=== PATIENT | female | born 1965 | race Caucasian/White ===

== ENCOUNTER 2016-11-24 22:55 | Emergency (ER) | payer OTHER ==
--- NOTE | ~2016-11-24 | ER ---
PATIENT'S NAME: YVONNE CARR [facility] AGE: 51 Y [address] ROOM: [place] [address] LOCATION: [facility] ADMIT DATE: 11/24/2016 ER/Outpatient Report DISCHARGE DATE: 11/25/2016 FAMILY PHYSICIAN: Carlos Barbosa MD ATTENDING PHYSICIAN: Cuauhtemoc Parra HISTORY OF PRESENT ILLNESS: This patient is a 51-year-old female, who comes in with right lower quadrant abdominal pain. The patient was seen by Sherry Petersen APRN. See Sherry Petersen's dictation in regard to chief complaint, history of present illness, past medical history, physical exam, laboratory study results. Sherry did order a CT scan of the abdomen and pelvis and asked me to follow up with the results after shift change. I took control of the patient at shift change. LABORATORY DATA AND X-RAYS: CT scan of the pelvis showed no evidence of free air or free fluid. Appendix was normal. She did have diverticulosis, but no evidence of diverticulitis or inflammatory changes. Everything was pretty much normal other than cystic structures in the right adnexa. I did go ahead and do an ultrasound of the pelvis, that showed 2 cysts on the right ovary, 1 cyst on the left ovary. Ovary was not torsed. There was no free fluid. No free air. No other abnormalities. Ultrasound and CT scans were read by radiologist, see dictated transcribed reports. IMPRESSION: Right lower quadrant abdominal pain, adnexal pain, etiology uncertain, most likely secondary to right ovarian cyst. The patient does have pyuria, bacteruria, and urine culture is pending. Doubt that she has urinary tract infection. We will follow the culture report. PLAN: The patient was given extensive pain medications here in the emergency department including fentanyl and Dilaudid. She was given Zofran for nausea. Did give the patient also some IV fluids. Discharged home. Observation. Activity as tolerated. Tell 10/325 one every 4 to 6 hours as needed for pain. Ativan 1 mg 3 times a day, #15. See dye colorist formulator either tomorrow or next week. See personal physician as needed. Discussion ensued with the patient concerning my findings and recommendations, she understands. CUAUHTEMOC PARRA MD SDS/modl PATIENT'S NAME: YVONNE CARR [facility] AGE: 51 Y [address] ROOM: [place] [address] LOCATION: [facility] ADMIT DATE: 11/24/2016 ER/Outpatient Report DISCHARGE DATE: 11/25/2016 FAMILY PHYSICIAN: Carlos Barbosa MD ATTENDING PHYSICIAN: Cuauhtemoc Parra /[id number] d: 11/25/16 0359 t: 11/25/16 1809, OUTPATIENT REPORT
--- NOTE | ~2016-11-24 | ER ---
PATIENT'S NAME: YVONNE CARR [facility] AGE: 51 Y [address] ROOM: [place] [address] LOCATION: ED ADMIT DATE: 11/24/2016 ER/Outpatient Report DISCHARGE DATE: 11/25/2016 FAMILY PHYSICIAN: Carlos Barbosa MD ATTENDING PHYSICIAN: Cuauhtemoc Stern Time of Arrival: 2300 hours. Time of Evaluation: 2310 hours. CHIEF COMPLAINT: Right abdominal pain. HISTORY OF PRESENT ILLNESS: The patient states approximately 1 hour prior to arrival, she had sudden onset of right lower quadrant abdominal pain. She last ate or drink anything at 8:30 tonight. She has been nauseated and vomited x2. Did have 2 loose stools this morning. Has not had any pain or discomfort with urination. Has not felt feverish. She states that she did think she was getting cold-like symptoms earlier today. She feels nasal congestion. She states that the pain is a sharp stabbing type pain. She states it is similar to pain that she had in the past when she had diverticulitis. ALLERGIES: ON THE CHART AND REVIEWED BY ME. MEDICATIONS: On the chart and reviewed by me. PAST MEDICAL HISTORY: 1. Arrhythmias. 2. GERD. 3. Diverticulitis. 4. Arthritis. PAST SURGICAL HISTORY: 1. Cholecystectomy. 2. Tonsillectomy. 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 SOCIAL HISTORY: She presents to the ER tonight accompanied by her . Denies use of tobacco, drugs, or alcohol. PATIENT'S NAME: YVONNE CARR [facility] AGE: 51 Y [address] ROOM: [place] [address] LOCATION: ED ADMIT DATE: 11/24/2016 ER/Outpatient Report DISCHARGE DATE: 11/25/2016 FAMILY PHYSICIAN: Carlos Barbosa MD ATTENDING PHYSICIAN: Cuauhtemoc Stern REVIEW OF SYSTEMS: All negative other than those mentioned in the HPI. PHYSICAL EXAMINATION: VITAL SIGNS: She weighed 178.9 kg. Blood pressure is 165/74, pulse is 63, respirations 16, temperature of 98.6, and O2 saturation was 95% on room air. GENERAL: She is awake, alert, and oriented x4. SKIN: [place], warm, and dry. RESPIRATIONS: Even and nonlabored. LUNGS: Lung sounds are clear throughout. HEART: Regular rate and rhythm. ABDOMEN: Round, soft, and nondistended. Bowel sounds are present. She is tender in the right lower quadrant. No rebound tenderness. EMERGENCY DEPARTMENT COURSE: Saline lock was initiated. Lab work was drawn. The patient was given Zofran 4 mg IV and fentanyl 50 mcg IV. Fluids of normal saline were started at a wide-open rate. CBC shows a white count of 13.1. Chem panel; BUN is 25 with a creatinine of 1. GFR was 58. Amylase is 32 with a lipase of 82. CT scan was ordered. Report was given to Dr. Stern at the change of the shift prior to CT scan results being returned. RADHA BROTHERS APRN FOR [facility]/yael /[id number] d: 11/25/16 0345 t: 12/01/16 1822, OUTPATIENT REPORT
[2016-11-24 23:39] LABS: BASOPHIL % 0.3 %; EOSINOPHIL # 0.2 K/uL (0.0-0.5); EOSINOPHIL % 1.8 %; HEMOGLOBIN 14.5 g/dL (10.0-15.0); IMMATURE GRANULOCYTE % 0.3 %; LYMPHOCYTE # 3.1 K/uL (0.8-4.0); LYMPHOCYTE % 23.3 %; MCH 29.5 pg (27.0-34.0); MCV 89.6 fl (83.0-98.0); MONOCYTE # 1.1 K/uL (0.0-1.0); MONOCYTE % 8.1 %; MPV 10.7 fl (9.4-12.4); NEUTROPHIL # (ANC) 8.7 K/uL (1.8-7.8); NEUTROPHIL % 66.2 %; NRBC % 0 /100WBC (0-0.00); PLATELET COUNT 248 K/uL (150-450); RBC 4.91 M/uL (3.50-5.50); RDW-CV 12.3 % (11.9-14.6); WBC 13.1 K/uL (4.0-11.0)
[2016-11-24 23:54] LABS: ALBUMIN 3.4 gm/dL (3.5-5.0); ANION GAP 13.1 (10.0-19.0); CALCIUM 9.1 mg/dL (8.5-10.5); POTASSIUM 4.1 mMol/L (3.7-5.1); TOTAL BILIRUBIN 0.4 mg/dL (0.0-1.5); TOTAL PROTEIN 7.5 g/dL (6.0-8.4)
[2016-11-25 00:41] LABS: BILIRUBIN URINE NEGATIVE (NEGATIVE); BLOOD URINE 50 /UL (NEGATIVE); COLOR URINE YELLOW (YELLOW); GLUCOSE URINE NEGATIVE (NEGATIVE); KETONE URINE NEGATIVE (NEGATIVE); LEUKOCYTES URINE 500 /UL (NEGATIVE); NITRITE URINE NEGATIVE (NEGATIVE); PROTEIN URINE 30 mg/dL (NEGATIVE); SPEC GRAVITY URINE 1.015 (1.003-1.035); TURBIDITY URINE 1+ (CLEAR); UROBILINOGEN URINE NORMAL (NORMAL)
[2016-11-25 00:47] LABS: WBC URINE 20-50 #/HPF (NEGATIVE)
[2016-11-25 00:48] LABS: BACTERIA URINE MANY (NEGATIVE); MUCUS URINE 1+ (NEGATIVE)
[2016-11-25 00:49] LABS: RENAL EPITH URINE 0-2 #/HPF (NEGATIVE)
[2016-11-25] MEDS ORDERED: BYSTOLIC10 MG PO (08:51)
[2016-11-25] MEDS ORDERED: DEXILANT60 MG PO (08:52)
[2016-11-25] MEDS ORDERED: PRINIVIL (ZESTR20 MG PO (08:52)
[2016-11-25] MEDS ORDERED: CLARITIN10 MG PO (08:52)
[2016-11-25] MEDS ORDERED: PHILLIPS' COLO1 EACH PO (08:53)
== END 2016-11-25 02:31 | disposition disaster alternative care site (69) ==
LOC: GMED 22:55
PROVIDERS: Emergency Medicine
DX: R10.31 Right lower quadrant pain (principal); R10.2 Pelvic and perineal pain; R82.71 Bacteriuria; I49.9 Cardiac arrhythmia, unspecified; K21.9 Gastro-esophageal reflux disease without esophagitis; M19.90 Unspecified osteoarthritis, unspecified site; Z90.49 Acquired absence of other specified parts of digestive tract; Z90.89 Acquired absence of other organs; Z87.19 Personal history of other diseases of the digestive system; Z88.0 Allergy status to penicillin; Z88.1 Allergy status to other antibiotic agents; Z88.5 Allergy status to narcotic agent; Z88.8 Allergy status to other drugs, medicaments and biological substances; Z79.899 Other long term (current) drug therapy
CPT/HCPCS: J1170; J2405; J3010; J7030; Q9967

== ENCOUNTER 2016-11-25 06:20 | Inpatient (IN) | payer OTHER ==
[~2016-11-25] VITALS: Ht 177.8 cm; Wt 180.1 kg
--- NOTE | ~2016-11-25 | CON ---
PATIENT'S NAME: YVONNE CARR [facility] AGE: 51 Y [address] ROOM: [place] [address] [place] [facility] [place]MIT DATE: 11/25/2016 Consultation DISCHARGE DATE: 11/27/2016 FAMILY PHYSICIAN: Carlos Barbosa MD ATTENDING PHYSICIAN: Jerald Phillips DISCHARGE DIAGNOSES: 1. Ovarian torsion. 2. Morbid obesity. PROCEDURES DURING ADMISSION: Exploratory laparotomy and bilateral salpingo-oophorectomy. REASON FOR ADMISSION: Ovarian torsion. HOSPITAL COURSE: The patient is a 51-year-old female who presented to the ER on 11/24 complaining of abdominal pain. She was found to have an ovarian cyst, but bilateral blood flow to the ovaries was noted. She was sent home. She presented again a few hours later on 11/25 complaining of worsening abdominal pain that came and went as well as severe nausea and vomiting. Suspicion for ovarian torsion was had. Therefore, exploratory laparotomy was recommended. She was taken to the OR where she underwent an exploratory laparotomy. Her right ovary was noted to be torsed and to have a 7 cm cyst. Her left ovary also was noted to have a cyst on it, but was not torsed. Both were removed. She also had her fallopian tubes removed. Postoperatively, she was admitted to the floor. A Prevena was then placed on her incision. She was ambulating, urinating, tolerating p.o., and desired to be discharged home on postoperative day #2. DISCHARGE INSTRUCTIONS: The patient was instructed to remove the Prevena one week after surgery. She was instructed on no lifting greater than 15 pounds for 4 weeks and to call if fever greater than 100.4, pain not controlled with pain medications, or if any area of her incision becomes red or looks infected. FOLLOWUP: The patient will follow up in [address] Phillips. MD IRENE SHAIKH/yael PATIENT'S NAME: YVONNE CARR [facility] AGE: 51 Y [address] ROOM: [place] [id number] [place]: [facility] [place] ADMIT DATE: 11/25/2016 Consultation DISCHARGE DATE: 11/27/2016 FAMILY PHYSICIAN: Carlos Barbosa MD ATTENDING PHYSICIAN: Jerald Phillips /[id number] d: 12/19/16 1427 t: 12/26/16 0819, CONSULTATION REPORT
--- NOTE | ~2016-11-25 | ER ---
PATIENT'S NAME: YVONNE CARR [facility] AGE: 51 Y [address] ROOM: [place] [address] LOCATION: [facility] – [place] ADMIT DATE: 11/25/2016 ER/Outpatient Report DISCHARGE DATE: FAMILY PHYSICIAN: Carlos Barbosa MD ATTENDING PHYSICIAN: JERALD PHILLIPS TIME OF ARRIVAL: 0620 hours. TIME OF EVALUATION: 0630 hours. CHIEF COMPLAINT: Abdominal pain. HISTORY OF PRESENT ILLNESS: The patient is a 51-year-old female who presents to the emergency department today with a chief complaint of abdominal pain. She reports this started last night. She was seen and evaluated here in the emergency department. She has not followed with her CHEMICAL ETCH OPERATOR in 1 day. Sent home with some pain medicine. The patient had undergone CT imaging as well as ultrasound imaging which did show cyst, but otherwise was unremarkable. The patient did return because of worsening pain with increasing severity as well as increased frequency of sharp, stabbing-type pain. It is in the right lower quadrant. It is currently 10/10 in severity. She does report it comes and goes, intermittent sharp pain in the right lower quadrant. It is worse with heat. Reports medications have not been helping. She does report some nausea and vomiting x8 in the past 24 hours. Denies any fevers or chills. Did have 2 rounds of diarrhea. She denies any history of similar problems. It does radiate back into her flank. She denies any dysuria. She did have some increased frequency until the end of the week and then did have decreased frequency. It is a sharp-type pain. PAST MEDICAL HISTORY: Arrhythmia, gastroesophageal reflux disease, diverticulosis, and arthritis. PAST SURGICAL HISTORY: Cholecystectomy and tonsillectomy. SOCIAL HISTORY: The patient denies any tobacco, alcohol, or illicit drug use. ALLERGIES: CODEINE, PENICILLIN, AZITHROMYCIN, OMNICEF, AND LAMICTAL. PATIENT'S NAME: YVONNE CARR [facility] AGE: 51 Y [address] ROOM: [place] [address] LOCATION: [facility] – [place] ADMIT DATE: 11/25/2016 ER/Outpatient Report DISCHARGE DATE: FAMILY PHYSICIAN: Carlos Barbosa MD ATTENDING PHYSICIAN: JERALD PHILLIPS MEDICATIONS: Please see list. REVIEW OF SYSTEMS: All systems are reviewed by myself and are negative with the exception of those discussed in the HPI and Past Medical History. PHYSICAL EXAMINATION: VITAL SIGNS: Weight 178.9 kg, blood pressure 179/81, pulse 58, respiratory rate 24, temperature 97.8, and oxygen saturation 96% on room air. GENERAL: The patient is a 51-year-old female who appears stated age, in acute discomfort secondary to pain in her abdomen. She is obese. HEENT: Normocephalic, atraumatic. Mucous membranes are moist. Nares are patent bilaterally. NECK: Supple. There is no nuchal rigidity. CARDIOVASCULAR: Bradycardic. No murmurs, rubs, or gallops. LUNGS: Clear to auscultation bilaterally. No wheezes, rales, or rhonchi. ABDOMEN: Soft. Mild right lower quadrant tenderness to palpation. There is no rebound, rigidity, or guarding. Positive bowel sounds. MUSCULOSKELETAL: The patient moves all 4 extremities. SKIN: Warm and dry. LABORATORY AND X-RAY DATA: Labs and x-rays are obtained. Lactate is elevated at 2.6. CBC is unremarkable except for white blood cell count of 13.6. ANC is 11.9. CMP unremarkable except for glucose 156 and BUN 27. LFTs are normal. Procalcitonin is less than 0.05. Laboratory analysis from previous visit was also reviewed by myself. CBC was unremarkable except for BUN 25. LFTs normal. Amylase and lipase are normal. CBC: White blood cell count 13.1. Otherwise, normal. Urinalysis showed 500 leukocyte esterase, 30 protein, 50 blood, 20 to 50 wbc's, 5 to 10 epithelials, and many bacteria. CT scan of the abdomen and pelvis was obtained. It does show a cystic right adnexal lesion which has increased in size, 9.3 x 7.9. Stable, multicystic left ovary. Normal appendix. Ultrasound, both transvaginal and transabdominal are utilized. I have discussed the results with the flight technician who did perform that ultrasound study. The left ovary did have a cystic structure that is 2.2 x 3.0 x 1.9 cm. The right ovary has two cysts, 8.6 x 8.2 x 8.7 and then 2.3 x 2.6 x 1.8. Blood flow to the ovaries was identified. There was no free fluid identified in the pelvis. There was some air. IMPRESSION: 1. Acute right lower quadrant abdominal pain with multiple ovarian cysts up to 8.7 cm, concern for possible ovarian torsion. 2. Bilateral ovarian cysts. 3. Leukocytosis. PATIENT'S NAME: YVONNE CARR [facility] AGE: 51 Y [address] ROOM: [place] [address] LOCATION: [facility] – [place] ADMIT DATE: 11/25/2016 ER/Outpatient Report DISCHARGE DATE: FAMILY PHYSICIAN: Carlos Barbosa MD ATTENDING PHYSICIAN: JERALD PHILLIPS 4. Lactic acidosis. 5. Nausea and vomiting. 6. Acute urinary tract infection, suspect bladder. 7. Initial visit. EMERGENCY DEPARTMENT COURSE: The patient was brought back to the examination room. Seen and evaluated by myself. IV was established. Laboratory analysis was obtained as described above. Imaging was reviewed as described above. I have discussed the results of the testing with the patient. I have contacted Dr. Jerald Phillips, who is on-call for CHEMICAL ETCH OPERATOR, and discussed the case with her. She has seen and evaluated the patient down here in the emergency department. There is concern for potential right ovarian torsion. Dr. Phillips will proceed to the operating room for evaluation and treatment. The patient was given 1 mg of Dilaudid IV, 1 L of normal saline, as well as 4 mg of Zofran IV. I did initiate Levaquin 750 mg IV for urinary tract infection. DISPOSITION: The patient is admitted under the care of Dr. Phillips and transferred to the operating room in stable condition. DO GIRISH DUNCAN/yael /[id number] d: 11/25/16 1446 t: 11/28/16 0930, OUTPATIENT REPORT
--- NOTE | ~2016-11-25 | OR ---
PATIENT'S NAME: YVONNE CARR [facility] AGE: 51 Y [address] ROOM: [place] [address] [place] [facility] [place]MIT DATE: 11/25/2016 OR/Procedure Report DISCHARGE DATE: FAMILY PHYSICIAN: Carlos Barbosa MD ATTENDING PHYSICIAN: JEARLD PHILLIPS SURGEON: Jerald Phillips MD PRINT COLOR OPERATOR: Kristen Chaudhary MD DATE OF PROCEDURE: 11/25/2016 PREOPERATIVE DIAGNOSES: 1. Concern for torsed right ovary. 2. An 8 cm right ovarian cyst. 3. Left ovarian cyst. 4. Thickened endometrial stripe. 5. Obesity. 6. Urinary tract infection. POSTOPERATIVE DIAGNOSES: 1. Concern for torsed right ovary. 2. An 8 cm right ovarian cyst. 3. Left ovarian cyst. 4. Thickened endometrial stripe. 5. Obesity. PROCEDURES PERFORMED: Cervical dilation and endometrial curettage, and exploratory laparotomy with bilateral salpingo-oophorectomy. FINDINGS: A 9 cm right ovarian cyst as well as a smaller 3 cm either ovary or tubular cyst adjacent to the first cyst. The right ovary was torsed about 4 times. Normal uterus. Left ovary with 3 cm cyst. Uterus sounded to 9 cm. Small amount of endometrial curettings obtained. ESTIMATED BLOOD LOSS: 50 mL. ANESTHESIA: General. COMPLICATIONS: None. INDICATIONS: The patient is a 51-year-old female, who presented to the ER last night on 11/24 complaining of right lower quadrant pain. She had a CT scan showing a right ovarian cyst and ultrasound showed blood flow to both ovaries. She was given pain medicine and sent home with instructions to follow up with her physical geographer. She then presented to the ER again complaining of worsening pain that came in waves as well as nausea and vomiting. The patient was found to have an acute abdomen and surgical PATIENT'S NAME: YVONNE CARR [facility] AGE: 51 Y [address] ROOM: [place] [address] [place] [facility] [place] DATE: 11/25/2016 OR/Procedure Report DISCHARGE DATE: FAMILY PHYSICIAN: Carlos Barbosa MD ATTENDING PHYSICIAN: JERALD PHILLIPS exploration was recommended. DESCRIPTION OF PROCEDURE: The patient was taken to the operating room where she was placed under general anesthesia without complication. She was placed in dorsal lithotomy position. She was prepped and draped in the usual sterile fashion. A Lopez catheter was placed. A time-out was performed. A weighted speculum was placed in the patient's vagina and a right angle was placed anteriorly to visualize the cervix. The anterior lip of the cervix was grasped with a single-tooth tenaculum. The uterus sounded to 9 cm. It was then gradually dilated to accommodate the curette. Sharp curettage was then performed with a small amount of tissue obtained. The tenaculum was removed and hemostasis was noted. All instruments were retrieved from the patient's vagina. The drapes were removed. She was then placed in dorsal supine position. A Retentus retractor was placed on her abdomen given her morbid obesity and large pannus. She was then prepped and draped in the usual sterile fashion. A scalpel was used to make a Pfannenstiel incision. This was carried down to the underlying fascia with cautery. The fascia was scored and then the fascial incisions were carried out bilaterally with Womack scissors. The rectus muscles were dissected off the fascia superiorly and inferiorly. The rectus muscles were divided in the midline. The peritoneum was identified and entered sharply. This was extended bluntly and sharply. The right ovary was brought to the incision and was noted to be torsed 3 to 4 times and we have an 8 cm cyst with a smaller 3 cm cyst adjacent to that. It either be the ovary or a tubular cyst. The IP ligament was clamped with a hysterectomy clamp. A back clamp was placed towards the ovary and the ovary was excised and sent for pathology. A Ramandeep stitch was placed around the IP ligament followed by a free tie stitch. These were both 0 Vicryl. Hemostasis was noted. The left ovary was then identified, it was noted to have adhesions of epiploica to it which were bluntly dissected off. The IP ligament was then identified and singly clamped. The ovary and tube were excised and sent to Pathology. A Ramandeep stitch of 0 Vicryl was placed around this followed by a free tie stitch. Hemostasis was noted. The uterus was palpated and found to be normal. The omentum was also palpated and no masses were noted. No ascites was noted upon entering the abdomen, and no studding of the peritoneum was noted. There was a large blood vessel that was bleeding on the rectus muscles and 2 stitches of 0 Vicryl were placed around this for hemostasis. The fascia was then closed in a running fashion using 0 PDS suture. The subcutaneous tissue was irrigated. No areas of bleeding were noted. This area was closed with 2-0 Vicryl in a running fashion. The skin was then closed with 4-0 Vicryl in subcuticular fashion. A Prevena wound VAC was then placed over the patient's incision. Instrument, sponge, and needle counts were correct prior to abdominal closure at the conclusion of the case. DISPOSITION: The patient is stable to PACU. PATIENT'S NAME: YVONNE CARR [facility] AGE: 51 Y [address] ROOM: [place] [address] [place] [facility] [place] DATE: 11/25/2016 OR/Procedure Report DISCHARGE DATE: FAMILY PHYSICIAN: Carlos Barbosa MD ATTENDING PHYSICIAN: JERALD PHILLIPS MD IRENE SHAIKH/yael /[id number] d: 11/25/16 1537 t: 12/12/16 0927, OPERATIVE SUMMARY
--- NOTE | ~2016-11-25 | HP ---
PATIENT'S NAME: YVONNE CARR [facility] AGE: 51 Y [address] ROOM: [place] [address] [place] [facility] [place] DATE: 11/25/2016 History & Physical DISCHARGE DATE: FAMILY PHYSICIAN: Carlos Barbosa MD ATTENDING PHYSICIAN: JOAN LUCIA DATE OF SERVICE: CHIEF COMPLAINT: Right lower quadrant pain. HISTORY OF PRESENT ILLNESS: The patient is a 51-year-old, G0 who presented to the ER initially last night reporting right lower quadrant pain. At that time, she had ultrasound performed that showed bilateral ovarian cysts with the largest being on the right of 8.6 x 8.2 x 8.7 cm. Bilateral blood flow to both ovaries was noted. She was given pain medication and was felt stable for discharge home. So she was discharged to home. She then presented to the ER again this morning reporting waves of pain as well as nausea and vomiting. The patient reports this pain all started last night around 9:30 p.m., and prior to that she has not had any lower abdominal pain. The patient is in obvious pain and distress, when I entered the room. PAST MEDICAL HISTORY: 1. PVCs. 2. Diverticulitis. 3. GERD. 4. Morbid obesity. PAST SURGICAL HISTORY: 1. Open cholecystectomy. 2. Tonsils. LOGISTICS INTERN HISTORY: She is a G0. She denies a history of any abnormal Pap smears. She reports that she has not had a period for about one and half years. She denies hot flashes. MEDICATIONS: Bystolic. ALLERGIES: REVIEWED. FAMILY HISTORY: PATIENT'S NAME: YVONNE CARR [facility] AGE: 51 Y [address] ROOM: [address] [address] [place] [facility] [place] DATE: 11/25/2016 History & Physical DISCHARGE DATE: FAMILY PHYSICIAN: Carlos Barbosa MD ATTENDING PHYSICIAN: JOAN LUCIA She reports a history of breast cancer in a paternal aunt and cervical cancer in her sister, and no other family history of cancer. REVIEW OF SYSTEMS: Negative except as noted in the HPI. SOCIAL HISTORY: She denies tobacco, alcohol, or drug use. She is present with her significant other today. PHYSICAL EXAMINATION: VITAL SIGNS: Heart rate 58, respirations 24, blood pressure 179/81, and 96% on room air. GENERAL: She is alert and oriented. She is in acute distress with pain coming in waves in her lower quadrant. The patient is also nauseated and has to pause multiple times during my interview and exam due to pain. HEART: Regular rate and rhythm. LUNGS: Clear to auscultation bilaterally. ABDOMEN: Obese, it is soft. It is acutely tender to palpation in the right lower quadrant. No rebound. She does have voluntary guarding. LABORATORY DATA: Her white blood cell count is 13.6, hemoglobin 14.4, and platelets 272,000. Her creatinine is 0.9. Liver function tests are normal. Lactate is 2.6. Urinalysis shows 500 of leukocytes, negative nitrites, many bacteria, 5-10 epithelial cells, 10-50 white blood cells, and 5-10 red blood cells. IMAGING STUDIES: The patient had an ultrasound as noted above that showed a uterus that measured 4.7 x 4.3 x 3.5 cm. Her endometrial stripe was slightly thickened at 8 mm. Her right ovary measured 5.0 x 3.4 x 4.4 cm and then a large cyst at the right ovary measured 8.6 x 8.2 x 8.7 cm. Her left ovary measured about 3.1 x 4.8 x 3.8 cm with a single cyst inside the left ovary measuring 2.2 x 3.0 x 9.1 cm. She also had a second right ovarian cyst that measured 2.3 x 2.6 x 1.8 cm. ASSESSMENT: The patient is a 51-year-old female with a right ovarian cyst that is likely torsing causing an acute abdomen. PLAN: I discussed with the patient that in anybody with a large ovarian cyst, there always a concern for ovarian cancer and I would prefer to send her to [facility]. However, given her acute pain, she does not want to do this and I do not think that she is a good candidate for transfer at this time. I recommend taking PATIENT'S NAME: YVONNE CARR [facility] AGE: 51 Y [address] ROOM: [place] [address] [place]: [facility] [place] DATE: 11/25/2016 History & Physical DISCHARGE DATE: FAMILY PHYSICIAN: Carlos Barbosa MD ATTENDING PHYSICIAN: JOAN LUCIA her to the OR with surgical exploration via laparotomy and removal of her right ovary and cyst as well as likely her left ovary as well, as well as her fallopian tubes. I discussed with her that I do not think laparoscopy is a good option given the size of the ovarian cyst and the risk for spilling intra- abdominally in the case that it is cancer this would be harmful. I discussed the risks of surgery to include bleeding, infection, damage to surrounding organs and tissues including bowel, bladder, blood vessels, ureters, and nerves. I also discussed needing additional hospitalizations or procedures due to any complications. The patient has been in agreement with plan. We will plan to proceed to the OR as soon as possible. The patient is reporting significant reflux symptoms. We will give her 40 of Protonix prior to going back to the OR. We will get an EKG and type and screen her as well. MD IRENE SHAIKH/yael /[id number] D: [id number] T: [id number] HISTORY & PHYSICAL
--- NOTE | ~2016-11-25 | DS ---
PATIENT'S NAME: YVONNE CARR [facility] AGE: 51 Y [address] ROOM: [place] [address] LOCATION: [facility] [place] ADMIT DATE: 11/25/2016 Discharge Summary DISCHARGE DATE: 11/27/2016 FAMILY PHYSICIAN: Carlos Barbosa MD ATTENDING PHYSICIAN: Jerald Phillips DISCHARGE DIAGNOSES: 1. Ovarian torsion. 2. Right ovarian cyst. 3. Left ovarian cyst. 4. Thickened endometrial stripe. PROCEDURES DURING ADMISSION: Exploratory laparotomy and bilateral salpingo- oophorectomy as well as dilation and curettage. REASON FOR ADMISSION: Ovarian torsion. HOSPITAL COURSE: The patient is a 51-year-old morbidly obese female, who presented to the ER with a suspected right ovarian torsion. She had been seen in the ER the day before and had a known 7 cm right ovarian cyst as well as a left ovarian cyst. Thickened endometrial stripe was also noted when she presented again, but she had an acute abdomen and therefore, surgery was recommended. The patient was taken to the operating room where she underwent exploratory laparotomy, that showed a torsed right ovary that had a 7 cm cyst as well as left ovarian cyst. She had a bilateral salpingo-oophorectomy without complications. She also underwent a dilation and curettage in the OR, given her thickened endometrial stripe on imaging and postmenopausal status. , her postoperative course was uncomplicated. She was ambulating, urinating, tolerating p.o., and desired to be discharged home on postoperative day #2. DISCHARGE INSTRUCTIONS: The patient is instructed no lifting greater than 15 pounds for 4 to 6 weeks. Call if fever greater than 100.4, pain not controlled with pain medication or if any area of her incision becomes red or looks infected. FOLLOW UP: The patient was instructed to follow up with Dr. Phillips in 2 weeks. MD IRENE SHAIKH/yael PATIENT'S NAME: YVONNE CARR [facility] AGE: 51 Y [address] ROOM: [place] [address] LOCATION: [facility] [place] ADMIT DATE: 11/25/2016 Discharge Summary DISCHARGE DATE: 11/27/2016 FAMILY PHYSICIAN: Carlos Barbosa MD ATTENDING PHYSICIAN: Jerald Phillips /[id number] d: 12/27/16 1435 t: 01/01/17 1129, DISCHARGE SUMMARY
[2016-11-25 07:16] LABS: BASOPHIL % 0.1 %; EOSINOPHIL % 0.1 %; HEMATOCRIT 42.8 % (33.0-46.0); HEMOGLOBIN 14.4 g/dL (10.0-15.0); IMMATURE GRANULOCYTE # 0.1 K/uL (0.0-0.3); IMMATURE GRANULOCYTE % 0.4 %; LYMPHOCYTE % 7.3 %; MCH 29.8 pg (27.0-34.0); MCHC 33.6 gm/dL (32.0-36.5); MCV 88.4 fl (83.0-98.0); MONOCYTE # 0.6 K/uL (0.0-1.0); MONOCYTE % 4.4 %; MPV 10.7 fl (9.4-12.4); NEUTROPHIL # (ANC) 11.9 K/uL (1.8-7.8); NEUTROPHIL % 87.7 %; NRBC % 0 /100WBC (0-0.00); PLATELET COUNT 272 K/uL (150-450); RBC 4.84 M/uL (3.50-5.50); RDW-CV 12.1 % (11.9-14.6); WBC 13.6 K/uL (4.0-11.0)
[2016-11-25 07:34] LABS: ALBUMIN 3.9 gm/dL (3.5-5.0); ALK PHOS 83 IU/L (33-138); ALT 42 IU/L (12-78); ANION GAP 12.4 (10.0-19.0); AST 24 IU/L (10-40); BLOOD UREA NITROGEN 27 mg/dL (6-24); CALCIUM 9.5 mg/dL (8.5-10.5); CHLORIDE 107 mMol/L (96-110); CO2 25 mMol/L (22-32); CREATININE 0.9 mg/dL (0.5-1.1); ESTIMATED GFR (MDRD EQUATION) > 60; POTASSIUM 4.4 mMol/L (3.7-5.1); SODIUM 140 mMol/L (135-145); TOTAL BILIRUBIN 0.5 mg/dL (0.0-1.5); TOTAL PROTEIN 7.5 g/dL (6.0-8.4)
[2016-11-25] MEDS ORDERED: BYSTOLIC10 MG PO (08:51)
[2016-11-25] MEDS ORDERED: DEXILANT60 MG PO (08:52)
[2016-11-25] MEDS ORDERED: PRINIVIL (ZESTR20 MG PO (08:52)
[2016-11-25] MEDS ORDERED: CLARITIN10 MG PO (08:52)
[2016-11-25] MEDS ORDERED: PHILLIPS' COLO1 EACH PO (08:53)
--- NOTE | 2016-11-25 16:05 | NUR ---
Significant Event: Patient is alert and oriented x3. VSS and titrated to 1 liter of O2. Will have one hourly post op VS left- 1915. IV to the R)AC, fluids infusing. Toradol Q6 hours x 3 doses. Two doses will be completed by 1800. Last percocet was at 1113. Denies severe pain and wanting more pain meds at this time. General diet. Did have some nausea when arriving to the floor- zofran given and advised patient to only take in ice chips. No emesis and nausea has subsided. Ordered some soup. Up in chair as tolerated, will try this evening. Wolfe cath in place. Remove wolfe POD#1 on 11/26/16 at 5AM. Prevara wound vac to lower midline abdomen. Cooperative with cares. Family at the bedside.
--- NOTE | 2016-11-26 03:33 | NUR ---
Pt. alert and oriented x3. VSS. 0.5L only for patient's comfort throughout night as concerned that sats would drop too low. R) AC IV with fluids at 125ml. Finished doses of Toradol. Last percocet taken at 0200 - pt. likes taking only 1 tab at a time. General diet - tolerating well. No c/o N/V. Lopez to be taken out early AM as well as planning to get out of bed. Prevara wound vac to lower midline. Cooperative with cares. at bedside.
[2016-11-26 05:21] LABS: MCH 29.7 pg (27.0-34.0); MCHC 32.5 gm/dL (32.0-36.5); MCV 91.5 fl (83.0-98.0); MPV 10.6 fl (9.4-12.4); RBC 4.37 M/uL (3.50-5.50); RDW-CV 12.7 % (11.9-14.6); WBC 9.8 K/uL (4.0-11.0)
--- NOTE | 2016-11-26 17:29 | NUR ---
Significant Event:Is A/O.SL in Rt.anticub.Is amb with walker & one assist.Low abd incision with small wound vac.Voiding ok.No flatus or stools yet.Had Percocet 1 at 1020;1430;& 1720.No N/V. Follow up:
--- NOTE | 2016-11-27 03:59 | NUR ---
Pt. alert and oriented x3. RA. VSS. R) IV - saline locked. Last percocet of 1 tab taken around 0100. Regular diet. 1 assist with walker and gaitbelt. Gave zofran around 2300 with relief. Voiding well. BS absent/hypoactive. Still not passing gas. Stool softener BID. Precara wound jose c to lower midline. Cooperative and pleasant with all cares.
[2016-11-27] MEDS ORDERED: SURFAK240 MG PO (11:32)
[2016-11-27] MEDS ORDERED: PERCOCET 5-3251 EACH PO (11:34)
--- NOTE | 2016-11-27 15:29 | NUR ---
Significant Event:Took over cares at 0930. Pt up ad julio in room. Wound vac intact to abd incision. Pain pill given prior to dc at 1200. Dc to home with , states understanding of all dc instructions and care of wound vac. Pt belongings sent with pt. Follow up:
== END 2016-11-27 12:10 | disposition disaster alternative care site (69) | DRG 742 ==
LOC: GMED 06:20 → GMSU 08:23 → GSDC 08:23 → GNTU 08:50 → GMSU 08:51 → GSDC 08:51 → GNTU 11:19 → GMSU 11:19 → GSDC 11-27 12:10 → GMSU 11-27 12:10
PROVIDERS: Emergency Medicine; ADMIT Obstetrics & Gynecology
DX: N83.201 Unspecified ovarian cyst, right side (principal); Z68.43 Body mass index [BMI] 50.0-59.9, adult; N39.0 Urinary tract infection, site not specified; E66.01 Morbid (severe) obesity due to excess calories; K21.9 Gastro-esophageal reflux disease without esophagitis; I49.3 Ventricular premature depolarization; B96.89 Other specified bacterial agents as the cause of diseases classified elsewhere
CPT/HCPCS: C9113; J1170; J1885; J1956; J2250; J2405; J3010; J7030

== ENCOUNTER → 2016-11-29 | Outpatient (CLI) | payer OTHER ==
[~2016-11-29] MED LIST: ATIVAN 1 MG1 MG PO; BACTRIM DS1 TAB PO; BYSTOLIC10 MG PO; CLARITIN10 MG PO; DEXILANT60 MG PO; FLAGYL500 MG PO; MOBIC7.5 MG PO; NORCO 10-325 T1 EACH PO; NYSTOP60 GM TOP; PERCOCET 5-3251 EACH PO; PHILLIPS' COLO1 EACH PO; PRINIVIL (ZESTR20 MG PO; SSD25 GM TOP; SURFAK240 MG PO; TYLENOL EXTRA500 MG PO; ZOFRAN ODT 4 MG4 MG PO
== END | disposition disaster alternative care site (69) ==
LOC: GRAD 12:40
DX: R50.9 Fever, unspecified (principal); R05 Cough; M41.9 Scoliosis, unspecified

== ENCOUNTER 2016-12-04 07:04 | Inpatient (IN) | payer OTHER ==
[~2016-12-04] VITALS: Ht 177.8 cm; Wt 173.0 kg
--- NOTE | ~2016-12-04 | CON ---
PATIENT'S NAME: YVONNE CARR [facility] AGE: 51 Y [address] ROOM: [place] [address] LOCATION: [facility] [place] ADMIT DATE: 12/04/2016 Consultation DISCHARGE DATE: FAMILY PHYSICIAN: Carlos Barbosa MD ATTENDING PHYSICIAN: Kristen Chaudhary DATE OF CONSULTATION: 12/04/2016 CONSULTATION NOTE CHIEF COMPLAINT/REASON FOR CONSULTATION: Sepsis. HISTORY OF PRESENT ILLNESS: This is a 51-year-old female with a history of hypertension, morbid obesity, and recent abdominal laparotomy for management of ovarian torsion with bilateral salpingo-oophorectomy on 11/25/2016. Seen in consult for workup of persistent fever. The patient reports to me that she had been measuring her temperatures at home ever since she left the hospital last week after her surgery and had been spiking fevers daily for the last few days. The patient also described some subjective fevers. However, she reports that abdominal pain and discomfort overall has gotten better following her surgery. The patient denies any dysuria, frequency, or urinary symptoms. The patient does report some cough that is productive in nature, but denies any shortness of breath. Denies any chest pain, dizziness, or lightheadedness. Denies any nausea, vomiting, diarrhea, or constipation. PAST MEDICAL HISTORY: 1. Morbid obesity. 2. Hypertension. 3. GERD. SOCIAL HISTORY: The patient denies any history of smoking, alcohol, or drug use. FAMILY HISTORY: The patient has a history of coronary artery disease in her mother. REVIEW OF SYSTEMS: All systems have been reviewed and were negative except as described in the HPI. PHYSICAL EXAMINATION: VITAL SIGNS: Blood pressure 115/46, pulse 82, respiratory rate 20, and temperature 99.5. PATIENT'S NAME: YVONNE CARR [facility] AGE: 51 Y [address] ROOM: [place] [address] LOCATION: [facility] [place] ADMIT DATE: 12/04/2016 Consultation DISCHARGE DATE: FAMILY PHYSICIAN: Carlos Barbosa MD ATTENDING PHYSICIAN: Kristen Chaudhary GENERAL: Morbidly obese, but awake, alert, and oriented x3, in no acute distress. HEENT: Moist mucous membranes. No scleral icterus. Conjunctival pallor noted. SKIN: Without rashes or lesions. Healing incisional scars on abdomen visible without obvious draining or erythema. CHEST: Clear to auscultation bilaterally. HEART: S1 and S2. Regular rate and rhythm. ABDOMEN: Soft. Mildly tender to palpation, but otherwise, has good bowel sounds. Incision sites are well healed. NEUROLOGIC: Grossly nonfocal. MUSCULOSKELETAL: No other joint pain, redness, or swelling noted. LABORATORY DATA: WBC 18.5. UA; wbc's 50-100 with likely contaminants with full-field epithelial cells. ASSESSMENT AND PLAN: 1. Sepsis, secondary to abdominal abscess. CT scan showing an 11 x 5 cm large right-sided abdominal abscess plus possible hematomas on the bilateral inferior rectus sheath with gas bubbles perhaps suggesting infection there as well. The recommendation is to attempt to drain the abdominal abscess and in the meantime, continue antibiotics and monitor clinically. Blood cultures are pending and antibiotics may be narrowed once abscess culture results are back. 2. Morbid obesity. The patient would need significant lifestyle modifications to address these issues. 3. Obstructive sleep apnea. She is supposed to be on nightly CPAP, but does not use this. 4. Essential hypertension. The patient should continue her home medications. 5. Deep venous thrombosis prophylaxis. Subcutaneous Lovenox. MD YENNY OVALLE/yael /[id number] d: 12/04/161943 t: 12/19/16 1440, CONSULTATION REPORT
--- NOTE | ~2016-12-04 | ER ---
PATIENT'S NAME: YVONNE CARR [facility] AGE: 51 Y [address] ROOM: [place] [address] [place] [facility] [place]: 12/04/2016 ER/Outpatient Report DISCHARGE DATE: FAMILY PHYSICIAN: Carlos Barbosa MD ATTENDING PHYSICIAN: Kristen Chaudhary CHIEF COMPLAINT: Fever. HISTORY OF PRESENT ILLNESS: The patient is one week status post bilateral salpingo-oophorectomy for multiple ovarian cysts with torsion, confirmed on laparoscopy and on pathologic exam. She states that over the last few days, her fever has been worse. She is having worse cough, but her fevers have been increasing. She was started on Bactrim and Flagyl on Monday but continues to feel worse. She denies any particular discomfort at the surgical site and states that this is "the best I have felt in a long time." There are no other focal issues, and she denies any urinary symptoms. PAST MEDICAL HISTORY: Documented on the record and reviewed by me. SOCIAL HISTORY: Documented on the record and reviewed by me. MEDICATIONS: Documented on the record and reviewed by me. ALLERGIES: DOCUMENTED ON THE RECORD AND REVIEWED BY ME. REVIEW OF SYSTEMS: All systems were reviewed and negative except as noted in the HPI. PHYSICAL EXAMINATION: VITAL SIGNS: Blood pressure 123/56, pulse 91, respiratory rate 18, temperature 100.9, SpO2 is 94% on room air. Pain 3/10. GENERAL: An age-appropriate obese female, sitting upright on the exam table, in no obvious pain or distress, appears miserable. NEUROLOGIC: Awake and alert. GCS 15. No focal deficits. No asymmetry. HEENT: Normocephalic, atraumatic. Eyes are PERRL. Oropharynx is clear. NECK: Supple. Trachea is midline. CHEST: Heart is regular rate and rhythm with no murmurs. LUNGS: Grossly clear to auscultation bilateral. No rhonchi, wheezes, or rales. PATIENT'S NAME: YVONNE CARR [facility] AGE: 51 Y [address] ROOM: [place] [address] [place] [facility] [place]: 12/04/2016 ER/Outpatient Report DISCHARGE DATE: FAMILY PHYSICIAN: Carlos Barbosa MD ATTENDING PHYSICIAN: Kristen Chaudhary ABDOMEN: Soft. No particular areas of tenderness. Surgical site appears intact. No gross abnormalities appreciated on exam. No focal tenderness. BACK: Normal to inspection and palpation. EXTREMITIES: Edematous but no focal areas consistent with cellulitis or DVT. SKIN: Appears to be grossly intact. LABORATORY DATA AND X-RAYS: CT of the abdomen reveals fluid collection in the subcutaneous tissues near the surgical tract in addition to the rectus sheath. This favors bleeding versus infection, favor infection. Labs: White count is 18.6, up from 12.6 on Monday. Hemoglobin and platelets are appropriate. Urinalysis: 500 leukocytes, 150 blood, the sample is poor as a full field of epithelial cells. Procalcitonin is below threshold. CMS without appreciable abnormality of the electrolytes, renal function, or hepatobiliary function. Thyroid is within normal limits. Lactate is 1.5. IMPRESSION: Infection versus bleeding of the surgical site, favor infection with rectus sheath involvement. EMERGENCY DEPARTMENT COURSE: The patient was seen and evaluated as above. The typical postoperative infections were investigated. No objective signs of DVT. Not consistent with PE. The patient did not have a pneumonia on her chest x-ray as reviewed by me. Her urinalysis is significantly contaminated and without urinary symptoms, I think UTI is very unlikely. With the significant change in her labs, despite broad-spectrum antibiotics, I am concerned for abscess. Most likely would be surgical site. At that time, she received a CT of the abdomen. This was diagnostic. I contacted Dr. Chaudhary, on-call Insurance Claim Representative for the patient's surgical group. The patient will be admitted to their service for further evaluation and treatment. The patient's antibiotics were changed to ertapenem for coverage of typical organism expected in this situation. All questions were answered, and the patient was admitted without further issue. MD TOMER ROGERS/yael /[id number] d: 12/04/168 t: 12/06/16 1124, OUTPATIENT REPORT
--- NOTE | ~2016-12-04 | HP ---
PATIENT'S NAME: YVONNE CARR [facility] AGE: 51 Y [address] ROOM: [place] [address] LOCATION: [facility] [place] ADMIT DATE: 12/04/2016 History & Physical DISCHARGE DATE: FAMILY PHYSICIAN: Carlos Barbosa MD ATTENDING PHYSICIAN: Kristen Chaudhary DATE OF SERVICE: 12/04/2016 CHIEF COMPLAINT: Postoperative fevers. HISTORY OF PRESENT ILLNESS: This is a 51-year-old 0 who is status post laparotomy and BSO for ovarian torsion on 11/25/2016. She presented with fevers and feeling poorly to the ER this morning. CT scan showed bilateral rectus sheath hematomas versus abscesses, but otherwise there was no clear origin of her fever. She has had no nausea, vomiting, shortness of breath, or chest pain. She thought she had a slight cough on Monday and was given a Z-Vincent. Chest x-ray at that time was negative. She had no evidence of cellulitis and wound infection when she was seen for followup on Monday, but I did start her on Bactrim and Flagyl as she was having an elevated temperature once a day at that time. She also has had some adhesive reaction to her wound VAC and had some blistering on and around her incision, but this has greatly improved. Her white blood cell count on Monday was 12. Today, it is 18.6. Overall, she has no clear complaint. She has no severe pain. She really just feels worn out. PAST MEDICAL HISTORY: 1. Cardiac arrhythmia, unknown type. 2. GERD. 3. Arthritis. 4. Morbid obesity. PAST SURGICAL HISTORY: 1. Tonsillectomy. 2. Cholecystectomy. 3. Bilateral salpingo-oophorectomy. 4. Left ankle. OBSTETRICAL HISTORY: She is a 0 with normal Paps. MEDICATIONS: 1. Probiotic. 2. Bystolic. 3. Claritin. PATIENT'S NAME: YVONNE CARR [facility] AGE: 51 Y [address] ROOM: [place] [address] LOCATION: [facility] [place] ADMIT DATE: 12/04/2016 History & Physical DISCHARGE DATE: FAMILY PHYSICIAN: Carlos Barbosa MD ATTENDING PHYSICIAN: Kristen Chaudhary 4. Dexilant. 5. Lisinopril. 6. Mobic. 7. Percocet. ALLERGIES: CODEINE, ERYTHROMYCIN, LAMISIL, OMNICEF, AND PENICILLIN. REVIEW OF SYSTEMS: As per HPI. All others are reviewed and negative. PHYSICAL EXAMINATION: VITAL SIGNS: BP 115/46, pulse 82, respirations 20, and temperature 99.5. GENERAL: She is alert and oriented. HEART: Regular rate and rhythm. LUNGS: Clear to auscultation bilaterally. ABDOMEN: Soft, appropriately tender, nondistended. Her incision is clean, dry, and intact with blisters present, but no cellulitis noted. EXTREMITIES: Show lymphedema which she states is her baseline. No clubbing or cyanosis. Calves are nontender. LABORATORY DATA: White blood cell count is 18.6. Urine shows small bacteria and positive leukocytes, but is not a clean catch. ASSESSMENT AND PLAN: Postop day #9 with fever. Differential diagnosis includes bilateral hematomas versus atelectasis versus possible urinary tract infection, although this is less likely, and her catch was not clean. Most likely, it is due to her hematomas. There is no drainage from her wound or evidence of incisional infection. However, we will admit her and put her on IV antibiotics until she is 48 hours afebrile and make sure we do deep venous thrombosis prophylaxis while she is here. I will have the hospitalist see her. MD TAD GRIMALDO/yael /[id number] D: [id number] T: [id number] HISTORY & PHYSICAL
--- NOTE | ~2016-12-04 | DS ---
PATIENT'S NAME: YVONNE CARR [facility] AGE: 51 Y [address] ROOM: [address] [address] LOCATION: [facility] [place] ADMIT DATE: 12/04/2016 Discharge Summary DISCHARGE DATE: 12/08/2016 FAMILY PHYSICIAN: Carlos Barbosa MD ATTENDING PHYSICIAN: Kristen Chaudhary REASON FOR ADMISSION: Postoperative infection. DISCHARGE DIAGNOSES: 1. Postoperative infection in the form of subcutaneous abscess. 2. Morbid obesity. PROCEDURES DURING ADMISSION: CT-guided drain placement. HOSPITAL COURSE: The patient is a 51-year-old female, who underwent an exploratory laparotomy and bilateral salpingo-oophorectomy for a torsed right ovary on 11/25. She presented to the ER on 12/[address] of the abdomen and pelvis showed a subcutaneous abscess formation. The patient was started on meropenem given her multiple drug allergies. She was admitted. On hospital #2, she received a CT-guided drain placement in the abscess. She was febrile on hospital day #2, still. On hospital day #3, the patient was doing well, and remained afebrile. She remained on antibiotics for 48 hours after her last fever and desired discharge home on hospital day #4. DISCHARGE INSTRUCTIONS: The patient was instructed to call for pain not controlled with pain medications. Fever greater than 100.4 or if any area of the drain looked red or infected. FOLLOWUP: The patient will follow up in [address] Phillips. MD IRENE SHAIKH/yael /[id number] d: 12/19/16 1346 t: 12/26/16 0819, DISCHARGE SUMMARY
[~2016-12-04 07:04] MED LIST changes: -ATIVAN 1 MG1 MG PO; -BACTRIM DS1 TAB PO; -FLAGYL500 MG PO; -MOBIC7.5 MG PO; -NORCO 10-325 T1 EACH PO; -NYSTOP60 GM TOP; -SSD25 GM TOP; -TYLENOL EXTRA500 MG PO; -ZOFRAN ODT 4 MG4 MG PO
[2016-12-04 08:10] LABS: BASOPHIL % 0.2 %; EOSINOPHIL # 0.1 K/uL (0.0-0.5); EOSINOPHIL % 0.7 %; HEMATOCRIT 39.4 % (33.0-46.0); HEMOGLOBIN 13.3 g/dL (10.0-15.0); IMMATURE GRANULOCYTE # 0.1 K/uL (0.0-0.3); IMMATURE GRANULOCYTE % 0.4 %; LYMPHOCYTE # 1.5 K/uL (0.8-4.0); LYMPHOCYTE % 7.8 %; MCH 29.8 pg (27.0-34.0); MCHC 33.8 gm/dL (32.0-36.5); MCV 88.1 fl (83.0-98.0); MONOCYTE # 1.4 K/uL (0.0-1.0); MONOCYTE % 7.5 %; MPV 9.5 fl (9.4-12.4); NEUTROPHIL # (ANC) 15.5 K/uL (1.8-7.8); NEUTROPHIL % 83.4 %; NRBC % 0 /100WBC (0-0.00); PLATELET COUNT 363 K/uL (150-450); RBC 4.47 M/uL (3.50-5.50); RDW-CV 12.1 % (11.9-14.6)
[2016-12-04 08:13] LABS: BILIRUBIN URINE NEGATIVE (NEGATIVE); BLOOD URINE 150 /UL (NEGATIVE); COLOR URINE YELLOW (YELLOW); GLUCOSE URINE NEGATIVE (NEGATIVE); KETONE URINE NEGATIVE (NEGATIVE); LEUKOCYTES URINE 500 /UL (NEGATIVE); NITRITE URINE NEGATIVE (NEGATIVE); PROTEIN URINE 30 mg/dL (NEGATIVE); SPEC GRAVITY URINE 1.015 (1.003-1.035); TURBIDITY URINE 2+ (CLEAR); UROBILINOGEN URINE 1 mg/dL (NORMAL)
[2016-12-04 08:37] LABS: AMORPHOUS URINE 1+ (NEGATIVE); BACTERIA URINE FEW (NEGATIVE); EPITHELIAL URINE FULL FIELD #/HPF (NEGATIVE); MUCUS URINE 1+ (NEGATIVE); RBC URINE 20-50 #/HPF (NEGATIVE); WBC URINE 50-100 #/HPF (NEGATIVE)
[2016-12-04 08:44] LABS: WBC 18.6 K/uL (4.0-11.0)
[2016-12-04 08:50] LABS: ALBUMIN 2.8 gm/dL (3.5-5.0); ALK PHOS 110 IU/L (33-138); ALT 36 IU/L (12-78); ANION GAP 13.3 (10.0-19.0); AST 23 IU/L (10-40); BLOOD UREA NITROGEN 14 mg/dL (6-24); CALCIUM 8.8 mg/dL (8.5-10.5); CHLORIDE 101 mMol/L (96-110); CO2 25 mMol/L (22-32); CREATININE 0.9 mg/dL (0.5-1.1); ESTIMATED GFR (MDRD EQUATION) > 60; POTASSIUM 4.3 mMol/L (3.7-5.1); SODIUM 135 mMol/L (135-145); TOTAL BILIRUBIN 0.5 mg/dL (0.0-1.5); TOTAL PROTEIN 7.3 g/dL (6.0-8.4)
[2016-12-04] MEDS ORDERED: BACTRIM DS1 TAB PO (12:30)
[2016-12-04] MEDS ORDERED: FLAGYL500 MG PO (12:30)
[2016-12-05 05:15] LABS: BASOPHIL % 0.1 %; EOSINOPHIL % 0.2 %; HEMATOCRIT 35.8 % (33.0-46.0); HEMOGLOBIN 11.9 g/dL (10.0-15.0); IMMATURE GRANULOCYTE # 0.1 K/uL (0.0-0.3); IMMATURE GRANULOCYTE % 0.4 %; LYMPHOCYTE # 1.6 K/uL (0.8-4.0); LYMPHOCYTE % 8.8 %; MCH 29.8 pg (27.0-34.0); MCHC 33.2 gm/dL (32.0-36.5); MCV 89.7 fl (83.0-98.0); MONOCYTE # 1.7 K/uL (0.0-1.0); MONOCYTE % 9.1 %; MPV 9.4 fl (9.4-12.4); NEUTROPHIL % 81.4 %; NRBC % 0 /100WBC (0-0.00); PLATELET COUNT 313 K/uL (150-450); RBC 3.99 M/uL (3.50-5.50); RDW-CV 12.2 % (11.9-14.6); WBC 18.4 K/uL (4.0-11.0)
[2016-12-05 10:56] LABS: INR - (THERAPEUTIC) 1.08 (0.92-1.07); PROTIME 11.4 SECONDS (9.8-11.4)
[2016-12-05] MEDS ORDERED: NYSTOP60 GM TOP (16:12)
[2016-12-05] MEDS ORDERED: SSD25 GM TOP (16:13)
[2016-12-05] MEDS ORDERED: NORCO 10-325 T1 EACH PO (16:14)
[2016-12-05] MEDS ORDERED: ATIVAN 1 MG1 MG PO (16:15)
[2016-12-05] MEDS ORDERED: ZOFRAN ODT 4 MG4 MG PO (16:16)
[2016-12-06 07:03] LABS: BASOPHIL # 0.1 K/uL (0.0-0.2); BASOPHIL % 0.4 %; EOSINOPHIL # 0.3 K/uL (0.0-0.5); HEMATOCRIT 35.9 % (33.0-46.0); HEMOGLOBIN 11.7 g/dL (10.0-15.0); IMMATURE GRANULOCYTE # 0.1 K/uL (0.0-0.3); IMMATURE GRANULOCYTE % 0.4 %; LYMPHOCYTE % 15.7 %; MCH 29.9 pg (27.0-34.0); MCHC 32.6 gm/dL (32.0-36.5); MCV 91.8 fl (83.0-98.0); MONOCYTE # 1.1 K/uL (0.0-1.0); MONOCYTE % 8.6 %; MPV 9.8 fl (9.4-12.4); NEUTROPHIL # (ANC) 9.4 K/uL (1.8-7.8); NEUTROPHIL % 72.9 %; NRBC % 0 /100WBC (0-0.00); PLATELET COUNT 283 K/uL (150-450); RBC 3.91 M/uL (3.50-5.50); RDW-CV 12.3 % (11.9-14.6); WBC 12.9 K/uL (4.0-11.0)
[2016-12-06 07:22] LABS: ANION GAP 9.7 (10.0-19.0); BLOOD UREA NITROGEN 16 mg/dL (6-24); CALCIUM 8.4 mg/dL (8.5-10.5); CHLORIDE 103 mMol/L (96-110); CO2 29 mMol/L (22-32); CREATININE 0.8 mg/dL (0.5-1.1); ESTIMATED GFR (MDRD EQUATION) > 60; MAGNESIUM 2.4 mg/dL (1.8-2.6); POTASSIUM 3.7 mMol/L (3.7-5.1); SODIUM 138 mMol/L (135-145)
[2016-12-07 05:51] LABS: BASOPHIL % 0.5 %; EOSINOPHIL # 0.3 K/uL (0.0-0.5); EOSINOPHIL % 2.9 %; HEMATOCRIT 36.3 % (33.0-46.0); HEMOGLOBIN 12.1 g/dL (10.0-15.0); IMMATURE GRANULOCYTE # 0.1 K/uL (0.0-0.3); IMMATURE GRANULOCYTE % 0.7 %; LYMPHOCYTE # 2.1 K/uL (0.8-4.0); LYMPHOCYTE % 23.1 %; MCH 29.7 pg (27.0-34.0); MCHC 33.3 gm/dL (32.0-36.5); MONOCYTE # 0.8 K/uL (0.0-1.0); MONOCYTE % 9.3 %; MPV 9.9 fl (9.4-12.4); NEUTROPHIL # (ANC) 5.6 K/uL (1.8-7.8); NEUTROPHIL % 63.5 %; NRBC % 0 /100WBC (0-0.00); PLATELET COUNT 340 K/uL (150-450); RBC 4.08 M/uL (3.50-5.50); RDW-CV 12.2 % (11.9-14.6); WBC 8.9 K/uL (4.0-11.0)
[2016-12-07 06:03] LABS: BLOOD UREA NITROGEN 18 mg/dL (6-24); CALCIUM 8.7 mg/dL (8.5-10.5); CHLORIDE 107 mMol/L (96-110); CO2 24 mMol/L (22-32); CREATININE 0.6 mg/dL (0.5-1.1); ESTIMATED GFR (MDRD EQUATION) > 60; SODIUM 139 mMol/L (135-145)
[2016-12-07 06:04] LABS: ANION GAP 12.5 (10.0-19.0); MAGNESIUM 2.3 mg/dL (1.8-2.6); POTASSIUM 4.5 mMol/L (3.7-5.1)
[2016-12-08] MEDS ORDERED: MOBIC7.5 MG PO (10:00)
[2016-12-08] MEDS ORDERED: TYLENOL EXTRA500 MG PO (10:00)
== END 2016-12-08 12:33 | disposition disaster alternative care site (69) | DRG 862 ==
LOC: GMED 07:04 → GMSU 10:40
PROVIDERS: Emergency Medicine; Hospitalist; Physician Assistant; Radiology Diagnostic Radiology; ADMIT Obstetrics & Gynecology
PROC: 0W9F40Z Drainage of Abdominal Wall with Drainage Device, Percutaneous Endoscopic Approach (ICD-10-PCS; principal; 2016-12-05)
DX: T81.4XXA Infection following a procedure, initial encounter (principal); A41.9 Sepsis, unspecified organism; K65.1 Peritoneal abscess; I95.9 Hypotension, unspecified; Z68.43 Body mass index [BMI] 50.0-59.9, adult; E66.01 Morbid (severe) obesity due to excess calories; K21.9 Gastro-esophageal reflux disease without esophagitis; J98.11 Atelectasis; L02.211 Cutaneous abscess of abdominal wall; E03.9 Hypothyroidism, unspecified; G47.33 Obstructive sleep apnea (adult) (pediatric); I10 Essential (primary) hypertension; I49.9 Cardiac arrhythmia, unspecified; M19.90 Unspecified osteoarthritis, unspecified site; Z90.49 Acquired absence of other specified parts of digestive tract; Z88.1 Allergy status to other antibiotic agents; Z88.0 Allergy status to penicillin; Z91.018 Allergy to other foods
CPT/HCPCS: C1729; J1335; J1650; J2001; J2405; J3010; J7030; J7050